=== PATIENT | male | born 1985 | race Caucasian/White ===

== ENCOUNTER 2019-04-12 00:35 | Emergency (ER) | payer SELFPAY ==
[~2019-04-12] VITALS: Ht 165.1 cm; Wt 60.5 kg
[~2019-04-12 00:35] MED LIST: LORA-441 PO
[2019-04-12 00:47] VITALS: Ht 165.1 cm; Wt 60.5 kg
[2019-04-12] MEDS ORDERED: IBUPROFEN 800 MG TAB PO ONE (03:00)
[2019-04-12] MEDS ORDERED: LORAZEPAM 1 MG TAB PO ONE (03:00)
[2019-04-12 03:53] VITALS: BP 147/67; PULSE 88; RESP 16
== END 2019-04-12 03:54 | disposition home or self-care (01) ==
LOC: FTE 00:35
DX: F41.1 Generalized anxiety disorder (principal)
CPT/HCPCS: 99283